=== PATIENT | male | born 1990 | race Caucasian/White ===

== ENCOUNTER 2016-09-02 05:09 | Emergency (ER) | payer OTHER ==
--- NOTE | 2016-09-02 05:15 | ED Physician Documentation ---
PD HPI ABD PAIN - Stated complaint Stated Complaint: ABDOMINAL PAIN - History obtained from History obtained from: Patient - History of Present Illness Timing - onset: How many hours ago (8) Timing - duration: Hours (8) Timing - details: Gradual onset, Still present, Constant (mid lower abdomen, steady pain localized. Not affected by position, movement, urination.) Quality: Aching, Pain Location: Periumbilical (and suprapubic area) Radiation: No: Left flank, Right flank Improved by: No: Eating, Position Worsened by: No: Eating, Moving, Position, Palpation Associated symptoms: Nausea. No: Fever, Vomiting, Diarrhea, Constipation, Dysuria (sadssssss) Similar symptoms before: Has not had sx before Recently seen: Not recently seen Review of Systems Constitutional: denies: Fever, Chills Nose: denies: Rhinorrhea / runny nose, Congestion Throat: denies: Sore throat Cardiac: denies: Chest pain / pressure Respiratory: denies: Cough GI: reports: Abdominal Pain, Nausea. denies: Vomiting, Constipation, Diarrhea, Bloody / black stool : denies: Dysuria, Frequency, Discharge Skin: denies: Rash, Lesions Musculoskeletal: denies: Back pain Neurologic: denies: Generalized weakness, Focal weakness, Near syncope PD PAST MEDICAL HISTORY - Past Medical History Cardiovascular: None Respiratory: None Neuro: None Endocrine/Autoimmune: None - Present Medications Home Medications: Ambulatory Orders Medication Instructions Recorded Confirmed No Known Home Medications [No 09/02/16 09/02/16 Known Home Medications] - Allergies Allergies/Adverse Reactions: Allergies Allergy/AdvReac Type Severity Reaction Status Date / Time No Known Drug Allergies Allergy Verified 09/02/16 05:19 PD ED PE NORMAL - Vitals Vital signs reviewed: Yes - General General: Alert and oriented X 3, Well developed/nourished, Other (appears uncomfortable, standing in room) - HEENT HEENT: Pharynx benign - Neck Neck: Supple, no meningeal sign, No adenopathy - Cardiac Cardiac: RRR, No murmur - Respiratory Respiratory: Clear bilaterally - Abdomen Abdomen: Normal bowel sounds, Soft, Non tender (palpation does not affect the pain initially. Recheck exam with slight tenderness infraumbilical without guarding nor percussion tenderness. ), Non distended, No organomegaly - Male Male : Deferred - Rectal Rectal: Deferred - Back Back: No CVA TTP - Derm Derm: Normal color, Warm and dry - Neuro Neuro: Alert and oriented X 3, No motor deficit, Normal speech (saddddddddddd) - Psych Psych: Normal mood, Normal affect Results - Vitals Vitals: Vital Signs - 24 hr 09/02/16 09/02/16 05:17 06:59 Temperature 36.5 C Heart Rate 83 77 Respiratory 17 16 Rate Blood Pressure 122/85 H 130/79 O2 Saturation 99 99 Oxygen O2 Source Room air - Labs Labs: Laboratory Tests 09/02/16 05:45 WBC 11.6 H RBC 4.86 Hgb 15.5 Hct 45.8 MCV 94.2 H MCH 31.9 H MCHC 33.8 RDW 12.2 Plt Count 223 MPV 9.0 Neut # 9.3 H Lymph # 1.3 L [place] # 0.8 Eos # 0.1 Baso # 0.0 Absolute Nucleated RBC 0.01 Nucleated RBCs 0.1 - Rads (name of study) KUB CT Radiology: Prelim report reviewed (No ureteral stones. No free fluid nor free air. Some inflammation at ileocecal area could be c/w ileitis or early appendicitis. ) PD MEDICAL DECISION MAKING - ED course Complexity details: reviewed results, considered differential (consider early appy but is not tender to palpation; consider stone but not to flank area. Given steady pain without much change on palpation, my initial consideration is ureteral stone. ), d/w patient, d/w fitness consultant (Dr. Cavanaugh, surgery concrete batching plant operator, who will come in and evaluate the patient, for concern of early appendicitis. ) Departure - Departure Clinical Impression: Lower abdominal pain Condition: Stable Record reviewed to determine appropriate education?: Yes Instructions: ED Abdominal Pain Appendx Poss
[2016-09-02] MEDS ORDERED: KETOROLAC 60 MG/2 ML VIAL ONE (05:35)
[2016-09-02] MEDS ORDERED: ACETAMINOPHEN 325 MG TABLET PO ONE (05:35)
[2016-09-02] MEDS ORDERED: ONDANSETRON ODT 4 MG TABLET ONE (05:35)
[2016-09-02] MEDS: KETOROLAC 60 MG/2 ML VIAL IM STA (05:47)
[2016-09-02] MEDS: ONDANSETRON ODT 4 MG TABLET TL STA (05:47)
[2016-09-02] MEDS: ACETAMINOPHEN 325 MG TABLET PO STA (05:47)
[2016-09-02 05:52] LABS: BASOPHILS % (AUTO) 0.2 %; EOSINOPHILS # (AUTO) 0.1 10^3/uL (0.0-0.7); EOSINOPHILS % (AUTO) 0.7 %; HCT - HEMATOCRIT 45.8 % (42.0-52.0); HGB - HEMOGLOBIN 15.5 g/dL (14.0-18.0); LYMPHOCYTES # (AUTO) 1.3 10^3/uL (1.5-3.5); LYMPHOCYTES % (AUTO) 11.6 %; MEAN CORPUSCULAR HEMOGLOBIN 31.9 pg (27.0-31.0); MEAN CORPUSCULAR HGB CONC 33.8 g/dL (32.0-36.0); MEAN CORPUSCULAR VOLUME 94.2 fL (80.0-94.0); MONOCYTES # (AUTO) 0.8 10^3/uL (0.0-1.0); MONOCYTES % (AUTO) 6.8 %; NEUTROPHILS # (AUTO) 9.3 10^3/uL (1.5-6.6); NEUTROPHILS % (AUTO) 80.7 %; NUCLEATED RED BLOOD CELLS AUTO 0.1 /100WBC; RED BLOOD COUNT 4.86 10^6/uL (4.70-6.10); RED CELL DISTRIBUTION WIDTH 12.2 % (12.0-15.0); UNCORRECTED WHITE BLOOD COUNT 11.6 x10^3/uL; WHITE BLOOD COUNT 11.6 x10^3/uL (4.8-10.8)
--- NOTE | 2016-09-02 06:43 | CT Preliminary Report ---
Exam: CT KUB IMPRESSION: 1. No urinary tract stones or obstruction. 2. Subtle edema in ileocecal junction region. This may represent inflammatory process such as termina l ileitis or early appendicitis. No evidence of abscess. No extraluminal gas. [facility] SITE ID: [id number]
--- NOTE | 2016-09-02 06:46 | CT Report ---
EXAM: CT ABDOMEN AND PELVIS (CT KUB) EXAM DATE: 09/02/2016 06:00 AM. CLINICAL HISTORY: Lower abd pain since 10 pm, constant. COMPARISONS: None. TECHNIQUE: Routine axial helical CT imaging was performed through the abdomen and pelvis without IV c ontrast. Reconstructions: Coronal and sagittal. In accordance with CT protocol optimization, one or more of the following dose reduction techniques w ere utilized for this exam: automated exposure control, adjustment of mA and/or KV based on patient s ize, or use of iterative reconstructive technique. FINDINGS: Lung Bases: Normal. Right Kidney/Ureter: No stones, hydronephrosis, or hydroureter. No perinephric fat stranding. Left Kidney/Ureter: No stones, hydronephrosis, or hydroureter. No perinephric fat stranding. Other Solid Organs: Noncontrast images of the solid organs are grossly unremarkable. Gallbladder/Bile Ducts: Unremarkable. Peritoneal Cavity: There is no extraluminal gas. There is no ascites. There are no dilated or thick w alled loops of bowel. There is mild edema and fat adjacent to the ileocecal valve (series 5, images 3 3 through 372. Appendix not identified. No bowel wall thickening evident. Pelvic Organs: No bladder stones or wall thickening. Noncontrast images of the visualized pelvic orga ns are unremarkable. Vasculature: Unremarkable. Other: None. IMPRESSION: 1. No urinary tract stones or obstruction. 2. Subtle edema in ileocecal junction region. This may represent inflammatory process such as termina l ileitis or early appendicitis. No evidence of abscess. No extraluminal gas. [facility] Referring Provider Line: [phone] SITE ID: [id number]
[2016-09-02 07:23] LABS: BILIRUBIN,URINE NEGATIVE (NEGATIVE)
[2016-09-02 07:38] LABS: UA CHARGE (STRIP ONLY) YES; UR CULTURE IF IND NOT INDICATED
[2016-09-02 09:21] VITALS: BP 127/67
--- NOTE | 2016-09-02 09:50 | ED Physician Documentation ---
History of Present Illness - Stated complaint Stated Complaint: ABDOMINAL PAIN - Chief complaint Chief Complaint: Abd Pain PD PAST MEDICAL HISTORY - Past Medical History Past Medical History: No Cardiovascular: None Respiratory: None Neuro: None Endocrine/Autoimmune: None GI: None : None HEENT: None Psych: None Musculoskeletal: None Derm: None - Past Surgical History Past Surgical History: Yes General: Other - Present Medications Home Medications: Ambulatory Orders Medication Instructions Recorded Confirmed No Known Home Medications [No 09/02/16 09/02/16 Known Home Medications] - Allergies Allergies/Adverse Reactions: Allergies Allergy/AdvReac Type Severity Reaction Status Date / Time No Known Drug Allergies Allergy Verified 09/02/16 05:19 - Social History Does the pt smoke?: No Smoking Status: Never smoker Does the pt drink ETOH?: Yes Does the pt have substance abuse?: No - Immunizations Immunizations are current?: Yes - POLST Patient has POLST: No Results - Vitals Vitals: Vital Signs - 24 hr 09/02/16 09/02/16 09/02/16 05:17 06:59 09:21 Temperature 36.5 C Heart Rate 83 77 86 Respiratory 17 16 12 Rate Blood Pressure 122/85 H 130/79 127/67 O2 Saturation 99 99 99 Oxygen O2 Source Room air - Labs Labs: Laboratory Tests 09/02/16 09/02/16 05:45 06:37 WBC 11.6 H RBC 4.86 Hgb 15.5 Hct 45.8 MCV 94.2 H MCH 31.9 H MCHC 33.8 RDW 12.2 Plt Count 223 MPV 9.0 Neut # 9.3 H Lymph # 1.3 L Miner # 0.8 Eos # 0.1 Baso # 0.0 Absolute Nucleated RBC 0.01 Nucleated RBCs 0.1 Urine Color YELLOW Urine Clarity CLEAR Urine pH 6.0 Ur Specific [place] 1.020 Urine Protein NEGATIVE Urine Glucose (UA) NEGATIVE Urine Ketones NEGATIVE Urine Occult Blood NEGATIVE Urine Nitrite NEGATIVE Urine Bilirubin NEGATIVE Urine Urobilinogen 0.2 (NORMAL) Ur Leukocyte Esterase NEGATIVE Ur Microscopic Review NOT INDICATED Urine Culture Comments NOT INDICATED PD MEDICAL DECISION MAKING - ED course ED course: assumed acre 730 AM pt seen by Dr Orourke for abd pain of < 1 days furation and had a CT scan possibly suggesting early appendicitis was in ER pending surgical consult seen by Dr Coates and felt unlikely to have appendicitis and is to be dced home with abd pain precautions Departure - Departure Disposition: Home, Self Care Clinical Impression: Lower abdominal pain Condition: Stable Instructions: ED Abdominal Pain Appendx Poss Comments: Return to the ER if the pain returns or worsens, especially if the pain localizes the the right lower abdomen. Otherwise follow up with your PMD for a recheck Sunday unless completely better Do not recommend any pain medications because do not want to mask worsening symptoms Forms: Activity restrictions
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
[2016-09-03] MEDS ORDERED: AMPICILLIN/SULBACTAM 3 GM in SODIUM CHLORIDE 0.9% MINIBAG 100 ML IV ONE (10:00)
== END 2016-09-02 09:41 | disposition home or self-care (01) ==
LOC: ED 05:09
DX: R10.33 Periumbilical pain (principal); R11.0 Nausea
CPT/HCPCS: 36415; 74176; 81001; 81003; 85025; 87086; 96372; 99283; 99284

== ENCOUNTER 2016-09-03 05:10 | Observation (INO) | payer OTHER ==
[2016-09-03] MEDS ORDERED: SODIUM CHLORIDE 0.9% 1,000 ML IV STA (06:09)
[2016-09-03] MEDS ORDERED: KETOROLAC 60 MG/2 ML VIAL IVP STA (06:48)
[2016-09-03] MEDS ORDERED: KETOROLAC 30 MG/ML VIAL ONE (06:54)
[2016-09-03] MEDS ORDERED: SODIUM CHLORIDE 0.9% 1,000 ML IV ONE (09:26)
[2016-09-03] MEDS ORDERED: MIDAZOLAM 2 MG/2 ML VIAL IVP ONE (09:45)
[2016-09-03] MEDS ORDERED: ONDANSETRON 4 MG/2 ML VIAL IVP ONE (09:45)
[2016-09-03] MEDS ORDERED: NEOSTIGMINE 1 MG/1 ML 10 ML MDV IVP ONE (09:45)
[2016-09-03] MEDS ORDERED: PROPOFOL 200 MG/20 ML VIAL IVP ONE (09:45)
[2016-09-03] MEDS ORDERED: GLYCOPYRROLATE 1 MG/5 ML VIAL IVP ONE (09:45)
[2016-09-03] MEDS ORDERED: DEXAMETHASONE 4 MG/ML VIAL IVP ONE (09:45)
[2016-09-03] MEDS ORDERED: fentaNYL 100 MCG/2 ML VIAL IVP ONE (09:45)
[2016-09-03] MEDS ORDERED: SUCCINYLCHOLINE 200 MG/10 ML VIAL IVP ONE (09:45)
[2016-09-03] MEDS ORDERED: LIDOCAINE-MPF 2% 5 ML VIAL IM ONE (09:45)
[2016-09-03] MEDS ORDERED: ROCURONIUM 50 MG/5 ML VIAL IVP ONE (09:45)
[2016-09-03] MEDS ORDERED: BUPIVACAINE 0.5% PF 30 ML VIAL SUBQ ONE ×2 (09:56)
[2016-09-03] MEDS ORDERED: LIDOCAINE 1%-EPI 1:100000 30 ML MDV SUBQ ONE ×2 (09:56)
[2016-09-03] MEDS ORDERED: AMPICILLIN/SULBACTAM 3 GM in SODIUM CHLORIDE 0.9% MINIBAG 100 ML IV ONE (10:00)
[2016-09-03] MEDS ORDERED: LACTATED RINGERS 1,000 ML IV ONE (10:35)
[2016-09-03] MEDS ORDERED: SODIUM CHLORIDE FLUSH 0.9% 10 ML SYRINGE IVP PRN (11:33)
[2016-09-03] MEDS ORDERED: BENZOCAINE/TETRACAINE/BUTAMBEN 20 GM MM PRN (11:33)
[2016-09-03] MEDS ORDERED: HYDROmorphone 1 MG/ML SYRINGE IVP PRN (11:33)
[2016-09-03] MEDS ORDERED: ONDANSETRON 4 MG/2 ML VIAL IVP PRN (11:33)
[2016-09-03] MEDS ORDERED: LORazepam 2 MG/ML SYRINGE IVP PRN (11:33)
[2016-09-03] MEDS ORDERED: ACETAMINOPHEN 1,000 MG/100 ML 100 ML IV PRN (11:33)
[2016-09-03] MEDS: LACTATED RINGERS 1,000 ML IV SCH ×2 (12:50→17:15)
[2016-09-03] MEDS: AMOX/CLAV 875 MG/125 MG TABLET PO SCH ×2 (12:51→20:37)
[2016-09-03] MEDS: oxyCOD/ACETAMIN 5 MG/325 MG TABLET PO PRN ×3 (13:43→20:37)
[2016-09-03] MEDS ORDERED: CARBOXYMETHYLCELLULOSE OPHTH DROPS ONE (14:00)
[2016-09-03] MEDS ORDERED: SODIUM CHLORIDE FLUSH 0.9% 10 ML SYRINGE IVP SCH (14:00)
[2016-09-03] MEDS ORDERED: FAMOTIDINE 20 MG TABLET PO SCH (21:00)
== END 2016-09-03 20:47 | disposition home or self-care (01) ==
PROC: 0DTJ4ZZ Resection of Appendix, Percutaneous Endoscopic Approach (ICD-10-PCS; principal; 2016-09-03 09:00)
DX: K35.3 Acute appendicitis with localized peritonitis (principal)
CPT/HCPCS: 36415; 44970; 85025; 96361; 96374; 99283; 99285; A9270; G0378; J0131; J7120

== ENCOUNTER 2017-09-22 06:54 | Emergency (ER) | payer OTHER ==
[2017-09-22] MEDS ORDERED: DEXAMETHASONE 10 MG/ML VIAL PO STA (07:17)
--- NOTE | 2017-09-22 07:19 | ED Physician Documentation ---
PD HPI URI - Stated complaint Stated Complaint: FEVER/BODY ACHES - Chief complaint Chief Complaint: Fever - History obtained from History obtained from: Patient - History of Present Illness Timing - onset: How many days ago (2-3) Timing duration: Days (3) Timing details: Gradual onset, Still present Associated symptoms: Fever, Chills, Nasal congestion, Rhinorrhea, Dry cough, Other (joint aches) Contributing factors: Sick contact Improves by: Rest Worsened by: Activity Similar symptoms before: Diagnosis (OM) Recently seen: Not recently seen - Additional information Additional information: Usually healthy 27-year-old male has developed a cough and congestion over the past 3 days he has developed fever and chills and aches. He feels sick. Review of Systems Constitutional: reports: Fever, Chills, Myalgias, Fatigue Eyes: denies: Decreased vision Ears: denies: Ear pain Nose: reports: Rhinorrhea / runny nose, Congestion Throat: denies: Sore throat Cardiac: denies: Chest pain / pressure, Palpitations Respiratory: reports: Cough. denies: Dyspnea GI: denies: Vomiting : denies: Dysuria, Frequency Musculoskeletal: reports: Joint pain. denies: Neck pain, Back pain, Joint swelling Neurologic: denies: Generalized weakness, Focal weakness, Numbness PD PAST MEDICAL HISTORY - Past Medical History Past Medical History: No Cardiovascular: None Respiratory: None Neuro: None Endocrine/Autoimmune: None GI: None : None HEENT: None Psych: None Musculoskeletal: None Derm: None - Past Surgical History Past Surgical History: Yes General: Other - Present Medications Home Medications: Ambulatory Orders Medication Instructions Recorded Confirmed Amox/Clav 875/125 [Augmentin 1 tab PO BID 10 Days tablet 09/03/16 875/125] oxyCODONE/ACET 5/325 [Percocet 5 2 tab PO Q4HR PRN #30 tablet 09/03/16 mg/325 mg] Azithromycin [Zithromax] 250 mg PO DAILY #6 tablet 09/22/17 - Allergies Allergies/Adverse Reactions: Allergies Allergy/AdvReac Type Severity Reaction Status Date / Time hydrocodone AdvReac Mild Nausea Verified 09/03/16 19:00 - Social History Does the pt smoke?: No Smoking Status: Never smoker Does the pt drink ETOH?: Yes Does the pt have substance abuse?: No - Immunizations Immunizations are current?: Yes - POLST Patient has POLST: No PD ED PE NORMAL - Vitals Vital signs reviewed: Yes (Tachycardia) - General General: Alert and oriented X 3, No acute distress, Well developed/nourished - HEENT HEENT: Atraumatic, PERRL, EOMI, Moist mucous membranes, Pharynx benign, Other ( There is marked inflammation of left TM with distortion of landmarks the right TM is less involved but does show tympanosclerosis in the basement.) - Neck Neck: Supple, no meningeal sign, No bony TTP - Cardiac Cardiac: RRR, No murmur - Respiratory Respiratory: No respiratory distress, Clear bilaterally - Abdomen Abdomen: Soft, Non tender - Back Back: No CVA TTP, No spinal TTP - Derm Derm: Normal color, Warm and dry, No rash - Extremities Extremities: No deformity, No edema - Neuro Neuro: Alert and oriented X 3, medical collections 2-12 intact, No motor deficit, No sensory deficit, Normal speech Eye Opening: Spontaneous Motor: Obeys Commands Verbal: Oriented GCS Score: 15 - Psych Psych: Normal mood, Normal affect Results - Vitals Vitals: Vital Signs - 24 hr // 07:01 Temperature 37.1 C Heart Rate 112 H Respiratory 18 Rate Blood Pressure 115/69 O2 Saturation 96 Oxygen O2 Source Room air PD MEDICAL DECISION MAKING - ED course Complexity details: reviewed old records, reviewed results, re-evaluated patient , considered differential, d/w patient ED course: 27-year-old male with a cough and congestion and fever and aches has otitis on examination. He is administered dexamethasone 10 mg orally and we will place him on some azithromycin. Departure - Departure Disposition: 01 Home, Self Care Clinical Impression: Otitis media Qualifiers: Otitis media type: suppurative Chronicity: acute Laterality: bilateral Recurrence: not specified as recurrent Spontaneous tympanic membrane rupture: without spontaneous rupture Qualified Code(s): H66.003 - Acute suppurative otitis media without spontaneous rupture of ear drum, bilateral Condition: Stable Instructions: ED Otitis Media Acute Adult Follow-Up: Mateus Cobos MD [Primary Care Provider] - Prescriptions: Azithromycin [Zithromax] 250 mg PO DAILY #6 tablet Forms: Activity restrictions
[2017-09-22 07:49] VITALS: BP 120/68
[2017-09-22] MEDS ORDERED: CHERRY SYRUP 10 ML UDC PO ONE (07:52)
== END 2017-09-22 07:53 | disposition home or self-care (01) ==
LOC: ED 06:54
DX: H66.003 Acute suppurative otitis media without spontaneous rupture of ear drum, bilateral (principal)
CPT/HCPCS: 99283; A9270

== ENCOUNTER 2018-07-04 06:58 | Emergency (ER) | payer OTHER ==
[2018-07-04 07:16] VITALS: BP 131/86
[2018-07-04] MEDS ORDERED: NAPROXEN 250 MG TABLET PO STA (07:30)
--- NOTE | 2018-07-04 07:35 | ED Physician Documentation ---
PD HPI BACK INJURY - Stated complaint Stated Complaint: BACK PAIN - History obtained from History obtained from: Patient - History of Present Illness Location: Lower Type of injury: Other (Symptoms started after shoveling snow yesterday) Where injury occurred: Home Timing - onset: Yesterday Timing - details: Gradual onset Severity Comments: Moderate Quality: Pain, Spasm. No: Sharp, Tearing Improved by: Rest Worsened by: Moving Associated symptoms: No: Fever, Weakness, Numbness, Incontinent of urine, Unable to urinate, Hematuria, Incontinent of stool Contributing factors: No: Anticoagulated Similar symptoms before: Has not had sx before Recently seen: Not recently seen Review of Systems Constitutional: denies: Fever, Chills Eyes: denies: Decreased vision Ears: denies: Ear pain Cardiac: denies: Chest pain / pressure Respiratory: denies: Dyspnea GI: denies: Abdominal Pain : denies: Dysuria, Hematuria Neurologic: denies: Generalized weakness, Focal weakness, Numbness PD PAST MEDICAL HISTORY - Past Medical History Cardiovascular: None Respiratory: None Endocrine/Autoimmune: None GI: None : None HEENT: None Psych: None Musculoskeletal: None Derm: None - Past Surgical History Past Surgical History: Yes General: Other - Present Medications Home Medications: Ambulatory Orders Medication Instructions Recorded Confirmed Naproxen 500 mg PO BID PRN #60 tablet 07/04/18 diazePAM [Valium] 5 mg PO TID PRN #10 tablet 07/04/18 - Allergies Allergies/Adverse Reactions: Allergies Allergy/AdvReac Type Severity Reaction Status Date / Time hydrocodone AdvReac Mild Nausea Verified 07/04/18 07:16 - Social History Does the pt smoke?: No Smoking Status: Never smoker Does the pt drink ETOH?: Yes Does the pt have substance abuse?: No - Immunizations Immunizations are current?: Yes - POLST Patient has POLST: No PD ED PE NORMAL - General General: Alert and oriented X 3, No acute distress - HEENT HEENT: Atraumatic, PERRL, EOMI, Ears normal - Cardiac Cardiac: RRR, Strong equal pulses - Respiratory Respiratory: No respiratory distress - Derm Derm: Normal color - Extremities Extremities: No deformity - Neuro Neuro: Alert and oriented X 3, raw juice weigher 2-12 intact, No motor deficit, No sensory deficit, Normal speech, Other (2/4 patellar reflex) Results - Vitals Vitals: Vital Signs - 24 hr 02/14/19 07:11 Temperature 35.9 C L Heart Rate 100 Respiratory 14 Rate Blood Pressure 131/86 H O2 Saturation 99 Oxygen O2 Source Room air PD MEDICAL DECISION MAKING - ED course ED course: The patient's symptoms are consistent with a musculoskeletal back pain, there is no clinical findings to suggest cauda equina or epidural abscess. Presently there is no emergent indication for MRI. The patient appears appropriate for outpatient management. I discussed warning signs and recommended returning for any worsening or any concerns. Departure - Departure Disposition: Home, Self Care Clinical Impression: Lumbar strain Qualifiers: Encounter type: initial encounter Qualified Code(s): S39.012A - Strain of muscle, fascia and tendon of lower back, initial encounter Condition: Good Instructions: ED Sprain Strain Lumbar Follow-Up: Mateus Cobos MD [Primary Care Provider] - Within 1 week (If your symptoms are not improving you may require outpatient physical therapy) Prescriptions: diazePAM [Valium] 5 mg PO TID PRN #10 tablet PRN Reason: Spasms Naproxen 500 mg PO BID PRN #60 tablet PRN Reason: Pain Comments: Please return for any worsening or any concerns
== END 2018-07-04 08:10 | disposition home or self-care (01) ==
LOC: ED 06:58
DX: S39.012A Strain of muscle, fascia and tendon of lower back, initial encounter (principal); Y93.H1 Activity, digging, shoveling and raking; Y92.009 Unspecified place in unspecified non-institutional (private) residence as the place of occurrence of the external cause
CPT/HCPCS: 99283; A9270